=== PATIENT | male | born 2000 | race Caucasian/White ===

== ENCOUNTER 2023-12-08 15:50 | Emergency (ER) | payer BC, MEDICAID, SELFPAY ==
[2023-12-08 15:57] VITALS: BP 128/67; PULSE 70; RESP 16; TEMP 37; O2SAT 99; BMI 23.7
[2023-12-08] MEDS: LIDOCAINE 1 % PF 30 ML INJECTION (16:29)
[2023-12-08 16:43] VITALS: PULSE 70; O2SAT 98
--- NOTE | 2023-12-08 17:00 | ED.UPPEXIN ---
HPI - Extremity Injury (Upper) General Date Seen: 12/08/23 Chief Complaint: Extremity Pain/Injury, Upper Stated Complaint: fishing hook stuck in hand Time Seen by Provider: 12/08/23 15:54 Source: patient and RN notes reviewed Mode of arrival: ambulatory Limitations: no limitations History of Present Illness HPI narrative: Patient is a very nice gentleman who presents to ER with a fishhook in his right dominant hand 3rd finger, this occurred while he was at home getting into his car, and not at the [employer] or actually fishing. His tetanus is up-to-date, he denies no problems with opening or closing his or extending or flexing his finger. There is no numbness or tingling. Presents here with a significant other. He did call the nurses line, and was uncomfortable with the suggestion they gave him. So presented to the emergency room. MD complaint: injury to: right and finger Review of Systems Status of ROS: Reports: 6 or more systems reviewed and unremarkable except as noted in History and below PFSH PFSH Social History Smoking Status: Never smoker How often do you have a drink containing alcohol: never AUDIT-C Alcohol total score: 0 Non-prescribed substance use: marijuana (any form) Exam Narrative: Exam Narrative: Patient is seen and assessed, there is indeed a treble hook in his radial side of his right 3rd finger between his PIP and D IP joint, this is not on the flexor surface, and interdigital. He is able the flex and extend his finger fully, both the PIP and PIP joint there is no evidence of any neurologic disruption, with good sensation noted over finger excellent cap refill. Small portal of entry is noted where the trouble hook goes in. I was able to cut off the other trouble hips, and using the back out technique, which shank pressure was able to remove the hook without disruption after infiltrating with the 2 mL of 1% lidocaine without epinephrine. Wound was soaked for approximately 15 minutes after with Hibiclens and sterile water. I gave the patient instructions. Tetanus is up-to-date at this point Const: Vital Signs, click to edit/add: Vital Signs - 24 hr 12/08/23 15:57 12/08/23 16:43 Temperature 98.6 F Pulse Rate [Pulse Oximeter] 70 70 Respiratory Rate 16 Blood Pressure [Ri ght Upper Arm] 128/67 Pulse Oximetry 99 98 Oxygen Delivery Me thod Room Air Room Air Documenting provider has reviewed patient's vital signs: yes Course Vital Signs Vital signs: Initial Vital Signs Temperature 98.6 F 12/08/23 15:57 Temperature Source Temporal Artery Scan 12/08/23 15:57 Pulse Rate 70 12/08/23 15:57 Respiratory Rate 16 12/08/23 15:57 Blood Pressure 128/67 12/08/23 15:57 Blood Pressure Mean 87 12/08/23 15:57 Blood Pressure Position Sitting 12/08/23 15:57 Pulse Oximetry 99 12/08/23 15:57 Oxygen Delivery Method Room Air 12/08/23 15:57 Vital Signs Temperature 98.6 F 12/08/23 15:57 Pulse Rate 70 12/08/23 15:57 Respiratory Rate 16 12/08/23 15:57 Blood Pressure 128/67 12/08/23 15:57 Pulse Oximetry 99 12/08/23 15:57 Oxygen Delivery Method Room Air 12/08/23 15:57 Temperature 98.6 F 12/08/23 15:57 Pulse Rate 70 12/08/23 16:43 Respiratory Rate 16 12/08/23 15:57 Blood Pressure 128/67 12/08/23 15:57 Pulse Oximetry 98 12/08/23 16:43 Oxygen Delivery Method Room Air 12/08/23 16:43 Medications Administered Medications: Generic Name Dose Route Start Last Admin Trade Name Freq PRN Reason Stop Dose Admin Lidocaine HCl 30 ml 12/08/23 16:18 12/08/23 16:29 Lidocaine 1 % Pf 30 Ml INJECTION 30 ml ONCE PRN Administration Discharge Plan Discharge Clinical Impression: [place] injury to finger, Foreign body finger Patient Disposition: Home w/ Parent or Adult Condition: Stable Additional Instructions: S bacitracin to the wound 3 times a day, watch for signs of infection such as redness swelling inability to move your finger or increasing pain and fever. If these occur then follow-up, this is a low chance of injury, but I would avoid putting her fingers in [employer] water or any other nonsterile situations for the next 2 weeks. Showering is okay Activity Level: Light activity Follow Up/Referrals: Jay Samuels MD [Primary Care Provider] - Stand Alone Forms: [facility] Info Instructions
== END 2023-12-08 17:05 | disposition home or self-care (01) ==
PROVIDERS: Emergency Provider Family Medicine; PCP Family Medicine
DX: S60.452A Superficial foreign body of right middle finger, initial encounter (principal); W45.8XXA Other foreign body or object entering through skin, initial encounter
CPT/HCPCS: 10120; 99283; J2001

== ENCOUNTER 2025-02-04 14:29 | Emergency (ER) | payer OTHER, BC, SELFPAY ==
--- OUTSIDE RECORDS SUMMARY | 2025-02-04 14:31 | XMS_ITS | Clinical Summary ---
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 90 Tablet 4 09/10/2023 Active Immunizations Immunization Administration Dates Next Due DTaP 01/26/2008 DTaP-HIB (TriHIBIT) 11/30/2005 MYnD-FzcB-FDP (Pediarix) 05/27/2003,03/29/2003,0 02/05/2003 HIB HbOC (HibTITER) 05/27/2003,03/29/2003,2002 HPV 9 (Gardasil 9) 10/24/2017,01/03/2015 Hepatitis A (Peds) 10/24/2017,01/03/2015 Hepatitis B (Peds) 2002 Inactivated Polio Vaccine 01/26/2008 Influenza, IIV3 (Age >=3 years) 05/27/2003 MENINGOCOCCAL VACCINE 2 VIAL 2MO-55YO (MENVEO) 01/03/2015 MMR 03/09/2008,01/26/2008 Pneumococcal conj 7-Valent (Prevnar 7) 0 11/30/2005,05/27/2003,03/29/2003,02/05 Tdap 01/03/2015 Varicella Vaccine 10/24/2017,07/18/2005 Social History Tobacco Use Types Packs/Day Years Used Date Smoking Tobacco: Some Days Cigarettes 0.1 5.7 Started: 2019 Smokeless Tobacco: Never Tobacco Cessation:Ready to Q uit: Not Asked; Counseling Given: Not Answered Alcohol Use Standard Drinks/Week Comments Not Currently 0 (1 standard drink = 0.6 oz pur e alcohol) PHQ-2 Answer Date Recorded PHQ-2 TOTAL SCORE 2 09/10/2023 Social Connections Answer Date Recorded Do you often feel lonely or isolated from those around you? 0 09/10/2023 Financial Resource Strain Answer Date R ecorded Difficulty of Paying Living Expenses 3 09/10/2023 Difficulty of Paying Living Expenses Not on file 09/10/2023 Food Insecurity Answer Date Recorded Do you worry your food will run out before you are able to buy more? 1 09/10/2023 Transportation Needs Answer Date Record ed Does lack of transportation keep you from medica l appointments? 1 09/10/2023 Does lack of transportation keep you from work, meetings or getting things that you need? 1 09/10/2023 Housing Stability Answer Date Recorded What is your housing situation today? 1 09/10/2023 Utilities Answer Date Recorded Do you have trouble paying f or utilities (for example, heat, electricity, water, phone)? 1 09/10/2023 Sex and Gender Information Value Date Recorded Sex Assigned at Not on file Legal Sex Male 1:15 PM CDT Gender Identity Not on file Sexual Orientation Not on file Obstetrics History Last Filed Vital Signs Vital Sign Reading Time Taken Comments Blood Pressure 122/60 09/10/2023 12:53 PM CDT Pulse 60 09/10/2023 12:53 PM CDT Temperature - - Respiratory Rate - - Oxygen Saturation - - Inhaled Oxygen Concentration - - Weight 89.4 kg (197 lb) 09/10/2023 12:53 PM CDT Height 185.4 cm (6' 1) 09/10/2023 12:53 PM CDT Body Mass Index 25.99 09/10/2023 12:53 PM CDT Plan of Treatment Health Maintenance Due Date Last Done Comments Hepatitis C screening for ag e 18-79 2020 Pneumococcal series for age 6-49 (1 of 2 - PCV) 2021 11/30/2005, 05/27/2003, 03/29/2003, Additional history exists BMI (ht and wt on same day) for age 18+ 09/09/2024 09/10/2023 Depression screening for age 12+ 09/09/2024 09/10/19 24 Tetanus booster 01/03/2025 01/03/2015 COVID-19 vaccine series ( - season) 2025 Influenza Vaccine (#1) 2025 05/27/2003 RSV vaccine for adults or (1 - 1-dose 75+ series) 2077 Hepatitis B series for 19+ Completed 05/27, 03/29/2003, 02/05/2003, Additional history exists HPV series for age 9-45 Completed 10/24/2017, 01/03 HIV for age 15-65 Completed 09/10/2023 Procedures Procedure Name Priority Date/Time Associated Diagnosis Comments ANTI HIV 1/2 Routine 09/10/2023 1:41 PM CDT Screening for HIV (human immunodeficiency virus) from Last 3 Months or Most Recently Relevant to Health Maintenance Results * ANTI HIV 1/2 [92165.0] (09/10/2023 1:41 PM CDT) HIV-1/HIV-2 SCREEN Non-Reacti ve Non-Reacti ve 09/11/2023 1:15 AM CDT [facility] Comment:HIV-1 p24 and HIV-1/ HIV-2 Ab Not Detected. Blood BLOOD SPECIMEN / Unknown Venipuncture / Unknown 09/10/2023 1:41 PM CDT 09/10/2023 1:45 PM CDT us Josh Cash MD SEND OUTS Final R esult [facility] [address] [place] [address], [place] from Last 3 Months or Most Recently Relevant to Health Maintenance Insurance [address] [place] [id number] [facility]VANT[facility] MEDICAID MEDICAID ADVANTAGE Care Teams Sand Car Worker Relationship Specialty [place] [address] [place] [address] PCP - General Family Practice 09/10/23
[2025-02-04 14:42] VITALS: BP 116/49; PULSE 67; RESP 16; TEMP 37.6; O2SAT 97; BMI 26.6
--- NOTE | 2025-02-04 16:38 | CRLHL7_ITS ---
For Patients: As a result of the Cures Act, medical imaging exams and procedure reports are released immediately into your electronic medical record. You may view this report before your referring provider. If you have questions, please contact your health care provider. INDICATION: Hit in nose by staple gun COMPARISON: None. TECHNIQUE: Three radiographic view(s) of the nasal bone. FINDINGS: Subtle cortical irregularity of the nasal bone suspicious for a minimally displaced fracture with comminution. IMPRESSION: Subtle cortical irregularity of the nasal bone suspicious for a minimally displaced fracture with comminution. Dictated by Dieudonne Dee MD @ 02/04/2025 5:46:22 PM (Electronically Signed)
--- NOTE | 2025-02-04 16:47 | ED.GENADULT ---
HPI - General Adult General Date Seen: 02/04/25 Chief complaint: Ear/Nose/Throat Problem Stated complaint: possible broken nose Time Seen by Provider: 02/04/25 16:34 History of Present Illness HPI narrative: Patient is the generally healthy 24-year-old who was at work today, he says he tried to toss a small hammer to his boss and did not throw it high enough. He was going to catch it, but it ricocheted off of a wooden board and hit him directly in the nose. He had some bleeding from the nares as well as a small cut on the side of his nose. He also chipped his left front incisor. No other facial pain or tenderness. Teeth otherwise feel stable. No neck pain. He does have a history of a prior injury to his nose and says it was not straight to begin with, but it looks worse now. Related Data Home Medications ?Medication ?Instructions ?Recorded ?Confirmed No Known Home Medications 02/04/25 02/04/25 [facility] Social History Smoking Status: Never smoker How often do you have a drink containing alcohol: never AUDIT-C Alcohol total score: 0 Non-prescribed substance use: marijuana (any form) Exam Narrative: Exam Narrative: Vital signs reviewed In general, alert, well-appearing young man. Head: Normocephalic. Eyes: Pupils are equal and reactive. ENT: He has bruising and swelling over the bridge of his nose, there is a tiny laceration on the right side of his nose with bleeding controlled. This does not need repair. Nares are clear at this time, bleeding has stopped and there is no septal hematoma. He does have tenderness over the bridge of his nose. No other facial tenderness or deformity. Dentition shows a chipped left front tooth not involving the root. Teeth are otherwise stable, no mandibular or maxillary tenderness. Const: Vital Signs, click to edit/add: Vital Signs - 24 hr 02/04/25 14:42 Temperature 99.6 F Pulse Rate [Pulse Oximeter] 67 Respiratory Rate 16 Blood Pressure [Ri ght Upper Arm] 116/49 L Pulse Oximetry 97 Oxygen Delivery Me thod Room Air Course Course ED Course: Will give him some ibuprofen as he has not taken anything yet. Nasal films to see how much of this is acute deformity. this appears by my review to show an acute fracture although not significantly angulated. Radiology report reviewed, they note probably a subtle if you for acute fracture with comminution. His girlfriend feels like his nose is significantly more angulated than it usually is, reviewed that this may be somewhat due to swelling, but will certainly have a follow-up with ENT as the swelling improves and see if there is a correction that needs to be made. In the meantime, ibuprofen and/or Tylenol, ice liberally, return for severe pain or other new concerns. Vital Signs Vital signs: Initial Vital Signs Temperature 99.6 F 02/04/25 14:42 Temperature Source Temporal Artery Scan 02/04/25 14:42 Pulse Rate 67 02/04/25 14:42 Respiratory Rate 16 02/04/25 14:42 Blood Pressure 116/49 L 02/04/25 14:42 Blood Pressure Mean 71 02/04/25 14:42 Blood Pressure Position Sitting 02/04/25 14:42 Pulse Oximetry 97 02/04/25 14:42 Oxygen Delivery Method Room Air 02/04/25 14:42 Vital Signs Temperature 99.6 F 02/04/25 14:42 Pulse Rate 67 02/04/25 14:42 Respiratory Rate 16 02/04/25 14:42 Blood Pressure 116/49 L 02/04/25 14:42 Pulse Oximetry 97 02/04/25 14:42 Oxygen Delivery Method Room Air 02/04/25 14:42 Temperature 99.6 F 02/04/25 14:42 Pulse Rate 67 02/04/25 14:42 Respiratory Rate 16 02/04/25 14:42 Blood Pressure 116/49 L 02/04/25 14:42 Pulse Oximetry 97 02/04/25 14:42 Oxygen Delivery Method Room Air 02/04/25 14:42 Medications Administered Medications: Discontinued Medications Generic Name Dose Route Start Last Admin Trade Name Freq PRN Reason Stop Dose Admin Sodium Chloride 1,000 mls @ 500 mls/hr 02/04/25 14:33 02/04/25 15:18 0.9 % Sodium Chloride 1000 Ml IV 02/04/25 16:32 Not Given .Q2H JA Ibuprofen 400 mg 02/04/25 16:38 02/04/25 16:51 Ibuprofen 200 Mg Tablet PO 02/04/25 16:39 400 mg ONCE ONE Administration Medical Decision Making Imaging Data Nasal bone x-ray: Attestation: I have reviewed the pertinent imaging results. Radiologist's impression: Patient: Matthew Dejesus MR#: [id number] : 2000 Acct:[id number] Loc: ED Service Date: 02/04/[address]: Ordering Physician: Delmy Keene M.D. Date of Service: 02/04/25 Procedure(s): XR nasal bones min 3V Accession Number(s): [id number] cc: Delmy Keene M.D.; Provider,Not a Local~ For Patients: As a result of the Cures Act, medical imaging exams and procedure reports are released immediately into your electronic medical record. You may view this report before your referring provider. If you have questions, please contact your health care provider. INDICATION: Hit in nose by staple gun COMPARISON: None. TECHNIQUE: Three radiographic view(s) of the nasal bone. FINDINGS: Subtle cortical irregularity of the nasal bone suspicious for a minimally displaced fracture with comminution. IMPRESSION: Subtle cortical irregularity of the nasal bone suspicious for a minimally displaced fracture with comminution. Dictated by Dieudonne Dee MD @ 02/04/2025 5:46:22 PM Discharge Plan Discharge Clinical Impression: Closed fracture nasal bone Patient Disposition: Home, Self-Care Condition: Stable Instructions: Nasal Fracture (ED) Additional Instructions: follow-up with ENT in the next week or so. You can call [phone] Amaya. ibuprofen and/or Tylenol as needed. Ice liberally over the next couple of days. Return if needed for severe pain or other worsening symptoms. Prescriptions: No Action No Known Home Medications Follow Up/Referrals: Jay Samuels MD [Staff Physician, Family Practice] Stand Alone Forms: [facility] Info Instructions
[2025-02-04] MEDS: IBUPROFEN 200 MG TABLET 400 MG PO (16:51)
== END 2025-02-04 17:54 | disposition home or self-care (01) ==
PROVIDERS: Emergency Provider Emergency Medicine
DX: S02.2XXA Fracture of nasal bones, initial encounter for closed fracture (principal); W20.8XXA Other cause of strike by thrown, projected or falling object, initial encounter
CPT/HCPCS: 70160; 99283; 99284; A9270

== ENCOUNTER 2025-02-12 09:31 | Day surgery (SDC) | payer OTHER, SELFPAY ==
[2025-02-12] VITALS (12 sets, daily range): BP systolic 103–134; BP diastolic 68–85; PULSE 52–81; RESP 12–22; TEMP 36.4–37.8; O2SAT 96–100; BMI 27.6
[2025-02-12] MEDS: OXYMETAZOLINE 0.05% NASAL SPRAY 2 SPRAY NOSTRIL-B (10:00)
[2025-02-12] MEDS: LACTATED RINGERS 1000 ML 1,000 ML 100 ML IV (10:00)
[2025-02-12] MEDS: SODIUM CHLORIDE 0.9 % (FLUSH) 10 ML SYRINGE IVF (10:00)
--- NOTE | 2025-02-12 11:49 | P.ANES_ITS ---
Anesthesia Charges Start Date/Time Anesthesia Start Date: 02/12/25 Anesthesia Start Time: 11:23 Stop Date/Time Anesthesia Stop Date: 02/12/25 Anesthesia Stop Time: 11:55 Coding CPT Codes CPT Codes: ANESTH NOSE/SINUS SURGERY - 56823 ([id number]) P1 - NORMAL HEALTHY PATIENT, QK - CERAMICS ENGINEER 2-4 CNCRNT ANES PROC, QX - ADULT EDUCATION MANAGER SVHarry W/ MED DIRECTION
--- NOTE | 2025-02-12 11:49 | W.ANESCHARGE ---
Anesthesia Charges Start Date/Time Anesthesia Start Date: 02/12/25 Anesthesia Start Time: 11:23 Stop Date/Time Anesthesia Stop Date: 02/12/25 Anesthesia Stop Time: 11:55 Coding CPT Codes CPT Codes: ANESTH NOSE/SINUS SURGERY - 56193 ([id number]) P1 - NORMAL HEALTHY PATIENT, QK - SECURITIES AND REAL ESTATE DIRECTOR 2-4 CNCRNT ANES PROC, QX - BILINGUAL CUSTOMER SERVICE SVHarry W/ MED DIRECTION
--- NOTE | 2025-02-12 11:56 | P.ANES_ITS ---
Anesthesia Charges Start Date/Time Anesthesia Start Date: 02/12/25 Anesthesia Start Time: 11:23 Stop Date/Time Anesthesia Stop Date: 02/12/25 Anesthesia Stop Time: 11:55 Coding CPT Codes CPT Codes: ANESTH NOSE/SINUS SURGERY - 43717 ([id number]) P1 - NORMAL HEALTHY PATIENT, QK - SPOOL WINDER 2-4 CNCRNT ANES PROC, QX - WORK COUNSELOR SVHarry W/ MED DIRECTION
--- NOTE | 2025-02-12 11:56 | W.ANESCHARGE ---
Anesthesia Charges Start Date/Time Anesthesia Start Date: 02/12/25 Anesthesia Start Time: 11:23 Stop Date/Time Anesthesia Stop Date: 02/12/25 Anesthesia Stop Time: 11:55 Coding CPT Codes CPT Codes: ANESTH NOSE/SINUS SURGERY - 51264 ([id number]) P1 - NORMAL HEALTHY PATIENT, QK - CLINICAL LIAISON 2-4 CNCRNT ANES PROC, QX - PET TRAINER SVHarry W/ MED DIRECTION
--- NOTE | 2025-02-12 11:59 | W.PM.ENTPROC ---
Procedure Note Date of procedure: 02/12/25 Procedure: Preop diagnosis depressed left nasal fracture Postop diagnosis same Procedure closed reduction nasal fracture with internal packing and external cast fixation Under general endotracheal anesthesia patient was prepped draped usual fashion. The nose was decongested with cocaine pledgets. The there was a lateralized right nasal bone was reduced digitally. There is an obvious palpable depressed left nasal bone. This was marked externally with the fracture elevator in the elevator inserted to the correct length and the fracture elevated. It was fairly loose and tended to want to fall back in so a Merocel pack was placed and inflated beneath the fracture line. An external dressing consisting of Steri tapes adhesive and then a plastic cast were applied. The patient procedure well was taken recovery satisfactory condition blood loss less than 5 mL. Surgeon: Barney Hernandez MD
[2025-02-12] MEDS: IBUPROFEN 200 MG TABLET PO (12:40)
--- NOTE | 2025-02-12 14:58 | PC.NURSE ---
Pt called [facility] as [facility] in FB did not receive zofran order. Zofran called in per chart order. Pt updated.
== END 2025-02-12 13:17 | disposition home or self-care (01) ==
PROVIDERS: Visit Provider Otolaryngology
PROC: 0NSBXZZ Reposition Nasal Bone, External Approach (ICD-10-PCS; CPT 21320; principal; 2025-02-12 11:00)
DX: S02.2XXA Fracture of nasal bones, initial encounter for closed fracture (principal)
CPT/HCPCS: 21320; 00160; A9270; J0330; J1100; J2250; J2405; J2704; J3010; J7120